=== PATIENT | male | born 1980 | race Hispanic/Latino ===

== ENCOUNTER 2024-02-12 11:08 | Emergency (ER) | payer SELFPAY ==
[2024-02-12 11:24] VITALS: BP 145/81
[2024-02-12 11:39] LABS: % Basophils 0.6 % (0-2); % Eosinophils 5.1 % (0-6); % Immature Granulocytes 0.1 % (0-0.5); % Lymphocytes 34.6 % (20.5-51.1); % Neutrophils 51.6 % (42.2-75.2); Absolute Eosinophils 0.4 10^3/uL (0-0.7); Absolute Lymphocytes 2.4 10^3/uL (1.2-3.4); Absolute Monocytes 0.6 10^3/uL (0.1-0.6); Absolute Neutrophils 3.6 10^3/uL (1.4-6.5); Hematocrit 42.3 % (39.0-52.0); Hemoglobin 13.8 g/dL (13.0-18.0); Mean Corp Hgb Conc. 32.6 g/dL (33.0-37.0); Mean Corpuscular Hgb 27.8 pg (27.0-31.0); Mean Corpuscular Volume 85.1 fL (80.0-94.0); Mean Platelet Volume 10.2 fL (7.4-10.4); Nucleated Red Blood Cells % 0 % (-); Platelet Count 255 10^3/uL (130-400); Red Blood Cell Count 4.97 10^6/uL (4.70-6.10); Red Cell Dist. Width 13.1 % (11.5-14.5)
[2024-02-12 11:57] LABS: ALT (SGPT) 89 U/L (0-50); AST (SGOT) 53 U/L (17-59); Albumin 4.8 g/dl (3.5-5.0); Alkaline Phosphatase 105 U/L (38-126); Blood Urea Nitrogen 19 mg/dl (9-20); Calcium 9.8 mg/dl (8.4-10.2); Carbon Dioxide 24 mmol/L (22-30); Chloride 106 mmol/L (98-107); Glucose 116 mg/dl (70-99); Potassium 4.4 mmol/L (3.5-5.1); Sodium 136 mmol/L (135-145); Total Bilirubin 0.6 mg/dl (0.2-1.3); Total Protein 7.9 g/dl (6.3-8.2); eGFR > 60.00
[2024-02-12 12:07] LABS: Troponin I < 0.012 ng/ml
--- NOTE | 2024-02-12 15:08 | ED.GENMED ---
History of Present Illness
General
Chief Complaint: Chest Pain
Time Seen by Provider: 02/12/24 15:08
Travel History
Have you had any contact with someone who has COVID-19?: No
Do you have any symptoms of coronavirus? Fever > 100 degrees, chills, cough, shortness of breath, sore throat, loss of taste or smell, muscle aches, or headache?: No
History of Present Illness
History of Present Illness:
HPI: Patient presents with chest pain. The chest pain started last week. He describes as burning sensation that worsens at nighttime. There is no positional changes that worsen the symptoms. He has no shortness of breath. He does not have a
history of asthma. He does not see doctors and does not have medical insurance. He has no other concerns however the symptoms were bad enough that they were keeping him up at night.
EXAM:
GENERAL: Well appearing in no distress
HEENT: Moist oral mucosa
CARDIOVASCULAR: No murmurs, normal heart rate, regular rhythm, No chest wall tenderness
PULMONARY: No respiratory distress, breath sounds are clear and equal
ABDOMEN: Soft with no peritoneal signs, no tenderness
NEUROLOGIC: Excellent strength all extremities, no coordination deficits
PSYCHIATRIC: Appropriate mental status, normal insight and judgement
EXTREMITIES: Nontender, no edema, moves all extremities equally
SKIN: There are some lesions in the anterior chest wall suggestive of psoriatic plaques
TIME OF INITIAL ENCOUNTER: 3:10 PM
NUMBER AND COMPLEXITY OF PROBLEMS ADDRESSED AT THE ENCOUNTER
� Chronic conditions affecting care: Denies any significant past medical history
� Acute Exacerbation and/or Progression of Chronic Illness: This is an acute problem
� Differential Diagnosis includes: GERD, ACS, asthma, reactive airway disease, chest wall pain, costochondritis
AMOUNT AND/OR COMPLEXITY OF DATA TO BE REVIEWED AND ANALYZED
� I performed an independent evaluation of and my interpretation is:
EKG: Sinus 68, leftward axis deviation, nonspecific ST abnormality, no old to compare
CT:
X-rays:
Laboratory Studies: CBC, chemistries, troponin are all normal
Other:
� Review of other/old records: I reviewed [facility]�there are no old records available for review
� Clinical information was obtained by an independent historian: I spoke to the brother at bedside
� Prescriptions/Medications Considered but not given:
� Further testing considered but not performed: Consider chest x-ray however the patient has no cough and no shortness of breath and lungs are clear and vital signs are unremarkable
RISK OF COMPLICATIONS AND/OR MORBIDITY OR MORTALITY OF PATIENT MANAGEMENT
� Social determinants of health affecting care: Lives at home, has no insurance
� Discussion with other providers:
� Escalation of care including admission/observation vs risk of discharge considered: The patient has chest pain described as burning that primarily occurs at night. Cardiac workup here is unremarkable including an unremarkable
EKG with a troponin is normal despite 1 week of symptoms. I suggest that he try to a course of [id number] PPI along with Pepcid. I have also given the contact information for an [facility] [place] clinic.
Phy Exam
Physical Exam
Physical Exam:
See HPI
Scores
Heart Score for Chest Pain Patients
STEMI patient?: Not applicable
Course
Orders/Labs/Results
Orders:
Orders
02/12/24 11:09
EKG [Electrocardiogram (*1)] Urgent
Reason for Study: Chest Pain
02/12/24 11:10
EKG- Treatment ONCE
02/12/24 11:29
Complete Blood Count/With Diff Urgent
Comprehensive Metabolic Panel Urgent
Troponin I Urgent
Abnormal Lab Results
02/12/24
11:29
MCHC 32.6 L g/dL
(33.0-37.0)
Glucose 116 H mg/dl
(70-99)
ALT 89 H U/L
(0-50)
02/12/24 11:29
02/12/24 11:29
Vital Signs
Initial and Last Documented VS:
Initial Vital Signs
Temp Pulse Resp BP Pulse Ox
98.6 F 68 18 145/81 97
02/12/24 11:24 02/12/24 11:24 02/12/24 11:24 02/12/24 11:24 02/12/24 11:24
Last Documented Vital Signs
Temp Pulse Resp BP Pulse Ox
98.6 F 68 18 145/81 97
02/12/24 11:24 02/12/24 11:24 02/12/24 11:24 02/12/24 11:24 02/12/24 11:24
*Critical Care Note
Total Time (30-74mins, 75-104mins- exclusive of procedures): Not Applicable
ED Attending Note
-
Portions of this chart may have been created with voice recognition software.� Occasional wrong word or��sound alike� substitutions may have occurred due to the inherent limitations of voice recognition software.
Discharge Plan
Departure
Patient Disposition: Home (Routine Discharge)
Date of Disposition: 02/12/24
Time of Disposition: 15:18
Patient with high blood pressure during this ER visit?: Yes
Discharge Problem:
Chest pain
Instructions: Acid Reflux and GERD in Adults (DC), Chest Pain PCP Follow Up
Referrals:
[facility]] - Follow up in 5-7 days
Activity Restrictions/Additional Instructions:
Your symptoms may be related to stomach acid excess. I recommend that you try a 2-week course of akyx-nuc-rentiwy omeprazole once daily. You could also try Pepcid for more quick acting relief. Your complete blood cell count is normal including a
normal hemoglobin of 13.8. Your chemistry levels were normal except your glucose level is slightly high at 116�this is not consistent with diabetes though. Your cardiac blood work shows no sign of heart attack. I have given you the contact
information for a local free clinic. Return here if worse.
Interventions
Interventions:
*General Assessment Last Done: 02/12/24 11:24
*Neglect/Abuse Screening Last Done: 02/12/24 11:24
*ED COVID-19 Vaccine History Last Done: 02/12/24 11:24
Discharge Date and Time
Print Language: [email or web address]
== END 2024-02-12 15:42 | disposition home or self-care (01) ==
LOC: EMR 11:08
PROVIDERS: Emergency Medicine; EMERGENCY PHYSICIAN Emergency Medicine
DX: R07.9 Chest pain, unspecified (principal); R20.8 Other disturbances of skin sensation; R03.0 Elevated blood-pressure reading, without diagnosis of hypertension; Z59.7 Insufficient social insurance and welfare support
CPT/HCPCS: 99284; 80053; 84484; 85025; 93005